=== PATIENT | female | born 2005 | race Caucasian/White ===

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

== ENCOUNTER 2023-01-04 12:50 | Outpatient (RCR) | payer OTHER, SELFPAY ==
[2023-01-04] MEDS: ONDANSETRON 2 MG/ML inj 4 MG IV (13:26)
[2023-01-04] MEDS: 0.9 % SODIUM CHLORIDE 1000 ml 1,000 ML IV (13:27)
[2023-01-04 15:11] VITALS: BP 114/77; PULSE 64; RESP 18; O2SAT 98
== END 2023-07-03 23:59 | disposition home or self-care (01) ==
LOC: CCIC 12:50
PROVIDERS: PCP Family Medicine; Referring Provider Family Medicine; Visit Provider Internal Medicine
DX: G90.1 Familial dysautonomia [Riley-Day] (principal)
CPT/HCPCS: 96360; 96376; J2405; J7030

== ENCOUNTER 2023-10-25 11:28 | Outpatient (REF) | payer OTHER, SELFPAY | END 2023-10-25 11:29 | disposition home or self-care (01) | LOC: NFLDREF 11:28 | PROVIDERS: PCP Family Medicine; Referring Provider Family Medicine; Visit Provider Physician Assistant | DX: R30.0 Dysuria (principal); N39.0 Urinary tract infection, site not specified | CPT/HCPCS: 87086 ==

== ENCOUNTER 2024-01-19 22:46 | Emergency (ER) | payer OTHER, SELFPAY ==
[2024-01-19 22:53] VITALS: BP 136/90; PULSE 91; RESP 18; TEMP 36.7; O2SAT 100; BMI 20.2
== END 2024-01-20 01:02 | disposition left against medical advice (07) ==
PROVIDERS: Emergency Provider Emergency Medicine Emergency Medical Services; PCP Family Medicine
DX: Z53.21 Procedure and treatment not carried out due to patient leaving prior to being seen by health care provider (principal)
CPT/HCPCS: 93005

== ENCOUNTER 2024-02-25 07:39 | Outpatient (REF) | payer OTHER, SELFPAY ==
--- OUTSIDE RECORDS SUMMARY | 2024-02-25 07:43 | XMS_ITS | Clinical Summary ---
Author Name Unknown Organization [facility] Address [place], [place] [address] Care Team Providers Care Dispensing And Measuring Optician Name Role Phone Pcp, No Primary Care Provider Unavailabl e Allergies Active Allergy Reactions Criticality Noted Date Comments Amitriptyline Other - Describe In Comment Field,Visual Disturbances 06/08/2021 Blurry vision (Abstracted records from [facility] Everywhere) Blurry vision Blurry vision Iodinated Contrast Media Hives,Rash Medium 07/02/2019 Metoclopramide *Unknown,Tachycardia 01/18/2022 (Abstracted records from [facility] Everywhere) Omeprazole Hives,Itching Medium 03/06/2019 Penicillins Rash Medium 07/21/2007 (Abstracted from transferred records[facility]) Medications Medication Sig Dispensed Refills Start Date End Date Status APREPITANT ORAL Take 4 mL by mouth once every other day. Active SODIUM CHLORIDE ORAL Take 3 capsules. by mouth 3 times daily if needed. Active acetaminophen (TYLENOL EXTRA STRGTH) 500 mg tablet Take 1,000 mg by mouth 2 times daily if needed for Pain. Active diclofenac 1.3 % (FLECTOR) 1.3 % patch Apply 1 Patch topically to affected area(s) 2 times daily if needed. 08/27/2022 Active fludrocortisone (FLORINEF) 0.1 mg tablet Take 0.2 mg by mouth once daily. 07/24/2022 Active FLUoxetine (PROZAC) 10 mg capsule Take 10 mg by mouth once daily. 08/27/2022 Active ibuprofen (ADVIL; MOTRIN) 400 mg tablet Take 400 mg by mouth every 6 hours if needed for Pain or Headache. 10/04/2021 Active levocetirizine (XYZAL) 5 mg tab tablet Take 5 mg by mouth once daily. 07/24/2023 Active montelukast (SINGULAIR) 10 mg tablet Take 1 Tablet by mouth once daily. 02/12/2023 Active ondansetron (ZOFRAN ODT) 4 mg disintegrating tablet Take 4 mg by mouth every 8 hours if needed for Nausea/Vomiting. 08/27/2022 Active simethicone 250 mg cap Take 250 mg by mouth every 6 hours if needed (gas). Active benzonatate (TESSALON) 100 mg capsuleIndications:Co ugh, unspecified type Take 1 Capsule (100 mg) by mouth 3 times daily if needed for Cough. 21 Capsule 08/14/2023 Active Active Problems No known active problems Social History Tobacco Use Types Packs/Day Years Used Date Smoking Tobacco: Never Smokeless Tobacco: Never Tobacco Cessation:Counseling Given: Not Answered Sex and Gender Information Value Date Recorded Sex Assigned at Not on file Gender Identity Not on file Sexual Orientation Not on file Obstetrics History Last Filed Vital Signs Vital Sign Reading Time Taken Comments Blood Pressure 119/82 09/11/2023 6:48 PM CDT Pulse 66 09/11/2023 6:48 PM CDT Temperature 37.2 ??C (98.9 ??F) 09/11/2023 6:48 PM CD T Respiratory Rate 16 09/11/2023 6:48 PM CDT Oxygen Saturation 100% 09/11/2023 6:48 PM CDT Inhaled Oxygen Concentration - - Weight 46 kg (101 lb 6.4 oz) 09/11/2023 3:49 PM CDT Height 149.9 cm (4' 11) 03/02/2023 10:26 PM CDT Body Mass Index - - Plan of Treatment Health Maintenance Due Date Last Done Comments Well Child Check for age 3-20 08/07/2006 Tdap 2014 Depression screening for age 12+ 2015 HIV for age 15-65 2018 HPV series for age 9-26 (1 - 3-dose series) 2018 Chlamydia for age 16-24 2019 BMI (ht and wt on same day) for age 18+ 2021 Hepatitis C screening for age 18-79 2021 Tetanus booster 2023 Influenza for age 9-49 07/19/2024 COVID-19 vaccine series Completed 08/10/20 23, 08/14/2022, 11/08/2021, Additional history exists Meningococcal series for age 11-21 Aged Out No longer eligible based on patient's age to complete this topic Pneumococcal series for age 6-64 Aged Out No longer eligible based on patient's age to complete this topic Care Teams Dispensing And Measuring Optician Relationship Specialty Start Date End Date Pcp, No . PCP - General 02/02/23
--- OUTSIDE RECORDS SUMMARY | 2024-02-25 07:43 | XMS_ITS | Encounter Summary ---
Author Name Unknown Organization [facility] Address [address] [place] [address] Care Team Providers Care Home Health Aide Name Role Phone Aldo Hare M.D. Primary Care Provider [phone] Lore David N.P. Primary Care Provider [phone] Mary Ferrera R.N. Unavailable Unavaila Juan José Reynaga M.D. Primary Care Provider [phone] Leena Cui R.N. Unavailable Unavailabl Leena Engel R.N. Unavailable Unavailgladys e Encounter Details Date Type Department Care Team (Late st Contact Info) Description 10/26/2012 After Hours Phone Note [facility] [address] [facility], [address] [place] [id number] Social History Tobacco Use Types Packs/Day Years Used Date Smoking Tobacco: Never Alcohol Use Standard Drinks/Week Comments Not Asked 0 (1 standard drink = 0.6 oz pur e alcohol) Sex and Gender Information Value Date Recorded Sex Assigned at Not on file Gender Identity Not on file Sexual Orientation Not on file Job Start Date Occupation Industry Not on file Not on file Not on file documented as of this encounter Plan of Treatment Upcoming Encounters Date Type Department Care Team (Late st Contact Info) Description 05/01/2024 2:00 PM CDT Office Visit [facility] [place] [address] [place] [address] Kamlesh Ortiz M.D. [address] [place] [address] documented as of this encounter Visit Diagnoses Not on filedocumented in this encounter Additional Health Concerns Infection Onset Date Last Indicated Resolved Time COVID-19 Rule-Out 04/21/2022 04/21/2022 04/22/2022 9:15 AM CDT COVID-19 (confirmed) 04/21/2022 04/21/2022 022 3:22 PM BOAT LABORER documented as of this encounter Care Teams Home Health Aide Relationship Specialty Start Date End Date Aldo Hare M.D. [address] [place] [address] PCP - General 04/18/07 02/22/19 Lore David, N.P. [address] [place] [address] PCP - General Family Nurse Practitioner 02/23/19 Juan José Leblanc M.D. [address] [place] [phone] PCP - General Family Medicine 10/10/20 Mary Ferrera R.N. Order Packer 05/17/21 12/03/22 Leena Cui RJelena Order Packer 03/25/23 Leena Cui R.NJuanjo 04/25/23 07/23/23 documented as of this encounter
--- OUTSIDE RECORDS SUMMARY | 2024-02-25 07:43 | XMS_ITS | Encounter Summary ---
Author Name Unknown Organization [facility] Address [address] [place] [address] Care Team Providers Care Bargeman Name Role Phone Lore David N.P. Primary Care Provider [phone] Mary Ferrera R.N. Unavailable Unavaila Juan José Reynaga M.D. Primary Care Provider [phone] Leena Cui R.N. Unavailable UnavailLeena Cuevas R.N. Unavailable Unavailabl e Encounter Details Date Type Department Care Team (Late st Contact Info) Description 02/02/2020 Abstract [facility] [address] [place] [address] Ordering Provider, External [address] [place] [address] Social History Tobacco Use Types Packs/Day Years Used Date Smoking Tobacco: Never Smokeless Tobacco: Never Alcohol Use Standard Drinks/Week Comments No 0 (1 standard drink = 0.6 oz pur e alcohol) Sex and Gender Information Value Date Recorded Sex Assigned at Not on file Gender Identity Not on file Sexual Orientation Not on file Job Start Date Occupation Industry Not on file Not on file Not on file documented as of this encounter Functional Status Functional Status Response Date of Assess ment Is patient deaf or have serious difficulty heari ng? No 02/16/2016 Is patient blind or have ser ious difficulty seeing, even when wearing glasses? No 02/16/2016 Does patient have difficulty walking or climbing stairs? No 02/16/2016 Does patient have difficulty dressing or bathing ? No 02/16/2016 Cognitive Status Response Date of Assessm ent Does patient have serious di fficulty concentrating, remembering, or making decisions? No 02/16/2016 documented as of this encounter Plan of Treatment Upcoming Encounters Date Type Department Care Team (Late st Contact Info) Description 05/01/2024 2:00 PM CDT Office Visit [facility] [place] [address] [place] [phone] Kamlesh Ortiz M.D. [address] [place] [phone] documented as of this encounter Procedures Procedure Name Priority Date/Time Associated Diagnosis Comments HEMOGRAM - EXTERNAL Today 01/28/2020 1 0:40 AM CDT VITAMIN D - EXTERNAL Today 01/28/2020 10:39 AM CDT documented in this encounter Results * (ABNORMAL) HEMOGRAM - EXTERNAL (01/28/2020 10:40 AM CDT) White Blood Cells 6.63 4.00 - 10.50 K/uL EXTERNAL LAB Red Blood Cells 4.60 4.10 - 5.30 M/uL EXTERNAL LAB Hemoglobin 13.5 12.0 - 15.0 g/dL EXTERNAL LAB Hematocrit 41.3 35.0 - 45.0 % EXTERNAL LAB MCV 89.8 78.0 - 95.0 fL EXTERNAL LAB MCH 29.3 26.0 - 32.0 pg EXTERNAL LAB MCHC 32.7 32.0 - 36.0 g/dL EXTERNAL LAB RDW 13.2 11.5 - 14.0 % EXTERNAL LAB Platelet Count 296 150 - 450 K/uL EXTERNAL LAB MPV 10.3(H) 6.0 - 9.5 fL EXTERNAL LAB 01/28/2020 10:4 0 AM CDT Narrative EXTERNAL LAB - 02/02/2020 8:46 AM CDT See Care Everywhere [address] [address] External Ordering Provider LABORATORY Performing Organization Address [facility]/ZIP Co de Phone Number EXTERNAL LAB * (ABNORMAL) VITAMIN D - EXTERNAL (01/28/2020 10:39 AM CDT) VITAMIN D 25 HYDROXY 28.2(L) 30.0 - 100.0 ng/mL EXTERNAL LAB 01/28/2020 10:3 9 AM CDT Narrative EXTERNAL LAB - 02/02/2020 8:48 AM CDT See Care Every[address] [address] External Ordering Provider LABORATORY Performing Organization Address City/[facility] Co de Phone Number EXTERNAL LAB documented in this encounter Visit Diagnoses Not on filedocumented in this encounter Additional Health Concerns Infection Onset Date Last Indicated Resolved Time COVID-19 Rule-Out 04/21/2022 04/21/2022 04/22/2022 9:15 AM CDT COVID-19 (confirmed) 04/21/2022 04/21/2022 11/ 022 3:22 PM MIDWIFE [employer] 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 [address] [place] [address] PCP - General Family Nurse Practitioner 02/23/19 Juan José Leblanc M.D. [address] [place] [phone] PCP - General Family Medicine 10/10/20 Mary Ferrera R.N. Piece Work Inspector 05/17/21 12/03/22 Leena Cui R.N. Piece Work Inspector 03/25/23 Leena Cui R.N. 04/25/23 07/23/23 documented as of this encounter
--- OUTSIDE RECORDS SUMMARY | 2024-02-25 07:43 | XMS_ITS | Encounter Summary ---
Author Name Unknown Organization [facility] Address [address] [place] [address] Care Team Providers Care Lead Cook Name Role Phone Juan José Leblanc M.D. Primary Care Provider [phone] Leena Cui R.N. Unavailable Unavailabl e Reason for Visit * Reason Onset Date Comments Refill Request 01/24/2024 Encounter Details Date Type Department Care Team ([facility] Contact Info) Description 01/24/2024 Refill [facility] [place] [facility] [place] [address] [place] [address] [address] [place] [address] Juan José Leblanc M.D. [address] [place] [phone] Refill Request Social History Tobacco Use Types Packs/Day Years Used Date Smoking Tobacco: Never Smokeless Tobacco: Never Alcohol Use Standard Drinks/Week Comments Not Asked 0 (1 standard drink = 0.6 oz pur e alcohol) AUDIT-C Answer Date Recorded Q1: How often do you have a drink containing alc ohol? Never 11/13/2022 Average Number of Drinks Not on file 12/27/2 022 Frequency of Binge Drinking Not on file 10/19 PHQ-2 Answer Date Recorded Patient Health Questionnaire-2 Score 0 11/13/2022 Sex and Gender Information Value Date Recorded Sex Assigned at Not on file Gender Identity Not on file Sexual Orientation Not on file Job Start Date Occupation Industry Not on file Not on file Not on file documented as of this encounter Functional Status Functional Status Response Date of Assess ment Is the person deaf or does h e/she have serious difficulty hearing? No 11/13/2022 Is this person blind or does he/she have serious difficulty seeing even when wearing glasses? No Does this person have seriou s difficulty walking or climbing stairs? No 11/13/2022 Does this person have difficulty dressing or bat alia? No 11/13/2022 Because of a physical, menta l, or emotional condition, does this person have difficulty doing errands alone such as visiting a doctor's office or shopping? No 11/13/2022 Cognitive Status Response Date of Assessm ent Because of a physical, menta l, or emotional condition, does this person have serious difficulty concentrating, remembering, or making decisions? No 11/13/2022 documented as of this encounter Plan of Treatment Upcoming Encounters Date Type Department Care Team (Late st Contact Info) Description 05/01/2024 2:00 PM CDT Office Visit [facility] [place] [facility] [place] [address] [place] [phone] Kamlesh Ortiz M.D. [address] [place] [phone] documented as of this encounter Visit Diagnoses Diagnosis Seasonal and perennial allergic rhinitis Allergic rhinitis, cause unspecified documented in this encounter Additional Health Concerns Assessment Noted Time PHQ-9 Depression Total Score: 0 11/25/19 21 11:44 AM HOTEL ASSOCIATE documented as of this encounter Care Teams Lead Cook Relationship Specialty Start Date End Date Juan José Leblanc M.D. [address] [place] [phone] PCP - General Family Medicine 10/10/20 Leena Cui R.N. Thermal Cutter Helper 03/25/23 documented as of this encounter
--- OUTSIDE RECORDS SUMMARY | 2024-02-25 07:43 | XMS_ITS | Clinical Summary ---
Author Name Unknown Organization [facility] Address [address] [place] [address] Care Team Providers Care Steel Construction Worker Name Role Phone Juan José Leblanc M.D. Primary Care Provider [phone] Leena Cui R.N. Unavailable Unavailabl e Allergies Active Allergy Reactions Criticality Noted Date Comments Amitriptyline Other 06/08/2021 Blurry vision Amoxicillin Rash 07/21/2007 Contrast Dye (Iv) Rash 07/02/2019 OK TO USE BARIUM CONTRAST FOR G-J TUBE EXCHANGE( 05-11-21) - RADIOLOGY [facility] Iodinated Diagnostic Agents Hives 09/26/2022 Lactose Gastrointestinal Intolerance Low 08/22/2016 Omeprazole Itch 03/06/2019 Metoclopramide Intolerant,Tachycardia 2 Medications Medication Sig Dispensed Refills Start Date End Date Status triamcinolone 0.025% (KENALOG) 0.025 % ointment Apply 1 Application topically as needed. 0 Active aprepitant (EMEND) 80 MG capsule Take 80 mg by mouth twice weekly. Tuesdays, 0 12/01/2020 Active olopatadine (Pataday) 0.2 % ophthalmic solutionIndications:A llergic conjunctivitis of both eyes Place 1 drop in both eyes once daily as needed for Allergies. 1 bottle 11 04/11/2021 Active fluticasone (Flonase) 50 MCG/ACT nasal sprayIndications:Seas onal and perennial allergic rhinitis 2 sprays in each nostril once daily. 3 bottle 3 04/11/2021 Active Additional Information Patient not taking.Reported on 05/18/2022 lubiprostone (Amitiza) 24 MCG capsule Take 24 mcg by mouth every 12 hours. 0 09/12/2021 Active Simethicone 250 MG CAPS Take 250 mg by mouth 4 times daily as needed. 0 Active sodium chloride 1 g tablet Take 1 gram by mouth 3 times daily. 0 Active IUD'S IU 0 Active SUMAtriptan (Imitrex) 100 MG tabletIndications:Lucien angus Take 1 tablet by mouth as needed for Migraine. May repeat in 2 hours if needed. Do not exceed 2 in 24 hours. 9 tablet 2 01/17/2022 Active Additional Information Patient not taking.Reported on 05/18/2022 fludrocortisone (Florinef) 0.[address] degree AV block,Dysautonomia ([facility]) Take 1 tablet by mouth once daily. 30 tablet 2 03/02/2022 Active triamcinolone 0.025% (Aristocort) 0.025 % cream 0 05/30/2022 Active Xifaxan 550 MG TABS 0 07/11/2022 Activ e diclofenac (Flector) 1.3 % PatchIndications:Righ t low back pain Apply 1 patch topically twice daily. 30 patch 3 08/27/2022 Active midodrine (Proamatine) 2.5 MG tablet three times a day 0 09/26/2022 Active fludrocortisone (Florinef) 0.1 MG tablet Take 0.2 mg by mouth. 0 07/24/2022 Active midodrine (Proamatine) 5 MG tablet Take 5 mg by mouth 3 times daily. 0 09/05/2022 Active LORazepam (Ativan) 0.5 MG tabletIndications:Mix ed anxiety depressive disorder 1 tablet 1 hour prior to procedure. May repeat x1 if needed 2 tablet 0 02/12/2023 Active FLUoxetine (Prozac) 10 MG capsuleIndications:Mi xed anxiety depressive disorder Take 2 capsules by mouth once daily. 180 capsule 0 10/17/2023 Active montelukast (Singulair) 10 MG tabletIndications:Sea micki and perennial allergic rhinitis Take 1 tablet by mouth at bedtime. 90 tablet 0 10/17/2023 Active Levocetirizine Dihydrochloride (Xyzal) 5 MG tabletIndications:All ergic rhinitis Take 1 tablet by mouth once daily. 90 tablet 0 10/17/2023 Active ondansetron ODT (Zofran) 4 MG disintegrating tabletIndications:Gas troparesis Take 1 tablet by mouth every 6 hours as needed for Nausea. 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 Positive HARRIET (antinuclear antibody) 11/17/2019 Other constipation 11/08/2019 Arthralgia 11/08/2019 Dysphagia 11/08/2019 Gastroparesis 09/30/2019 Adolescent depression 08/06/2019 Chronic pharyngitis 07/02/2019 Heartburn 07/02/2019 Elevated erythrocyte sedimentation rate 07/02/20 Recurrent oral aphthae 07/02/2019 Chronic abdominal pain 02/23/2019 Vitamin D insufficiency 02/09/2019 Lactose intolerance 10/27/2014 Resolved Problems Problem Noted Date Diagnosed Date Resolved Date Calcium oxalate crystals in urine 02/21/2021 10/24/2021 Malfunction of jejunostomy t ube ([facility]) 03/09/2020 10/24/2021 Malnutrition ([facility]) 02/26/2020 09/28/2020 Malnutrition of moderate deg ree ([facility]) 10/22/2019 11/13/2022 Abdominal pain, right upper quadrant 07/02/2019 09/28/2020 Abdominal pain, right lower quadrant 07/02/2019 09/28/2020 Abdominal pain, epigastric 07/02/2019 1 11/28/2019 Abdominal tenderness, right upper quadrant 07/02/2019 09/28/2020 Abdominal tenderness, left upper quadrant 07/02/2019 09/28/2020 Abdominal tenderness, right lower quadrant 07/02/2019 09/28/2020 Abdominal tenderness, epigastric 07/02/2019 09/28/2020 Low back pain 07/02/2019 09/28/2020 Flatulence 07/02/2019 09/28/2020 Nausea 07/02/2019 09/28/2020 Wheal 07/02/2019 09/28/2020 Abdominal pain, periumbilical 07/02/2019 09/28/2020 Abnormal stools 07/02/2019 09/28/2020 Abdominal tenderness, periumbilical 07/02/2019 09/28/[address] scan, gastrointestinal tract 07/02/2019 09/28/2020 Pruritic rash 07/02/2019 09/28/2020 Abnormal biliary HIDA scan 03/06/2019 1 11/28/2019 Family history of autoimmune disorder 02/03/2019 09/28/2020 Keratosis pilaris 02/16/2016 09/28/2020 Chronic pharyngitis 01/15/2014 06/03/20 15 Underweight 01/15/2014 09/28/2020 Short stature 01/15/2014 09/28/2020 Elevated sedimentation rate 01/15/2014 02/16/2016 Flatulence 01/15/2014 06/03/2015 Abnormal stools 01/15/2014 06/03/2015 Abdominal pain, epigastric 01/05/2014 0 06/03/2015 ESR raised 01/05/2014 06/03/2015 Overview: 12/2013 initial Lyme +; Western blot NEG Encounters Date Type Department Care Team Description 01/24/2024 Refill [facility] [address] [place] [phone] Juan José Leblanc M.D. Refill Request 01/15/2024 [address] [facility] [address] [place] [phone] Juan José Leblanc M.D. Refill Request 12/18/2023 Refill [facility] - A Department of [address] [address] Juan José Leblanc M.D. Refill Request from Last 3 Months Immunizations Name Administration Dates Next Due DTaP 03/21/2005 DTaP, 5 Pertussis Antigens 09/08/2008 [id number]-[id number]-Cggar 03/10/2004,01/07/2004,2003 HIB-OMP 10/04/2004 HepA Ped 2 Dose 09/08/2008,10/01/2007 Hepatitis B Vaccine 2003 Hib-HbOC 01/07/2004 Hib-PRP-T 03/10/2004,2003 Hpv, 9-valent 05/20/2018,04/11/2017 IPV 09/08/2008 Influenza Adult (3+) 09/22/2012,10/16/2004,09/05 Influenza Preservative-Free 09/22/2012, 1 Influenza Quadrivalent P-Free 08/30/2022 ,10/24/2021,08/19/2020,09/24,08/25/2018,09/13/2017,09/13/2016 Influenza, unspecified formulation 10/24/2021,,09/05/2004 MMR 10/04/2004 Meningococcal B, OMV 11/14/2020,10/10/2020 Meningococcal, c Conjugate 08/19/2020,10/25/2014 Meningococcal-MCV4P 08/19/2020 Mmr & Zheng Combo Vaccine 10/01/2007 Moderna COVID-19 Vaccine 11/08/2021 Pfizer COVID-19 Vaccine Biva lent (12Y+) 08/14/2022 Lenet-Mobypark COVID-19 Vaccine 04/12/2021,05/0 03/2021 Pneumococcal Conjugate 7 10/04/2004,09/18,06/09/2004,06/09,01/07/2004,01/07/2004,2003 ,2003 Tdap >7 Years 09/24/2013 Varicella Vaccine 10/04/2004 Family History Medical History Relation Comments Asthma Brother Exercise Induced skin cancer Father Thyroid Maternal Aunt 1 precancerous colon polyps Maternal Aunt 2 Arthritis Maternal Grandfather psoriatic Alzheimers Maternal Grandmother Autoimmune Disease Maternal Grandmother Lupus Other Maternal Grandmother MFHx of aut oimmune disorders Thyroid Maternal Grandmother Asthma Mother Exercise Induced Cancer Paternal Grandmother breast Relation Status Comments Brother Alive x 1 Father Alive Maternal Aunt 1 Maternal Aunt 2 Maternal Grandfather Maternal Grandmother Mother Alive Paternal Grandmother Social History Tobacco Use Types Packs/Day Years Used Date Smoking Tobacco: Never Smokeless Tobacco: Never Tobacco Cessation:Counseling Given: No Alcohol Use Standard Drinks/Week Comments Not Asked 0 (1 standard drink = 0.6 oz pur e alcohol) AUDIT-C Answer Date Recorded Q1: How often do you have a drink containing alc ohol? Never 11/13/2022 Average Number of Drinks Not on file 022 Frequency of Binge Drinking Not on file 10/19 PHQ-2 Answer Date Recorded Patient Health Questionnaire-2 Score 0 11/13/2022 Sex and Gender Information Value Date Recorded Sex Assigned at Not on file Gender Identity Not on file Sexual Orientation Not on file Job Start Date Occupation Industry Not on file Not on file Not on file Last Filed Vital Signs Vital Sign Reading Time Taken Comments Blood Pressure 125/78 11/13/2022 2:17 PM CRABBER Pulse 71 11/13/2022 2:17 PM CRABBER Temperature 36.6 ??C (97.9 ??F) 10/10/2022 1:11 PM CS T Respiratory Rate 16 10/10/2022 1:11 PM CRABBER Oxygen Saturation 99% 11/13/2022 2:17 PM CRABBER Inhaled Oxygen Concentration - - Weight 43.8 kg (96 lb 8 oz) 11/13/2022 2:[address] Height 151.6 cm (4' 11.7) 11/13/2022 2:17 PM CS T Body Mass Index 19.04 11/13/2022 2:17 PM CRABBER Plan of Treatment Upcoming Encounters Date Type Department Care Team (Late st Contact Info) Description 05/01/2024 2:00 PM CDT Office Visit [facility] [place] [address] [place] [address] [phone] Kamlesh Ortiz M.D. [address] [place] [phone] Health Maintenance Due Date Last Done Comments CHLAMYDIA SCREENING IN WOMEN 2019 HEPATITIS C SCREENING 2021 COVID-19 Vaccine ( season) 2023 08/14/2022, 11/08/2021, 04/12/2021, Additional history exists DTaP,Tdap,and Td Vaccines (7 - Td or Tdap) 09/24/2023 09/24/2013, 09/08/2008, 03/21/2005, Additional history exists INFLUENZA (SEASONAL) (Season Ended) 2024 08/30/2022, 10/24/2021, 10/24/2021, Additional history exists HEPATITIS B VACCINES Completed 03/10/2004, 01/07/2004, 2003, Additional history exists PNEUMOCOCCAL SERIES 0-64 YEARS Aged Out 10/04/2004, 10/04/2004, 06/09/2004, Additional history exists No longer eligible based on patient's age to complete this topic HPV Completed 05/20/2018, 04/11/2017 LIPID PANEL Completed 10/16/2021, 10/18, 11/24/2013 Advance Directives For more information, please contact: [phone] Latest Code Status on File Code Status Date Activated Date Inactivated Comments Full Code 03/09/2020 9:52 PM 03/10/2020 4:32 PM Code Status History Code Status Date Activated Date Inactivated Comments Full Code 07/02/2019 11:23 AM 07/02/2019 5:12 PM Full Code 01/15/2014 7:15 AM 01/16/2014 2:10 AM Care Teams Steel Construction Worker Relationship Specialty Start Date End Date Juan José Leblanc M.D. [address] [place] [phone] PCP - General Family Medicine 10/10/20 Leena Cui R.N. Manager Culture 03/25/23
--- OUTSIDE RECORDS SUMMARY | 2024-02-25 07:43 | XMS_ITS | Encounter Summary ---
Author Name Unknown Organization [facility] Address [address] [place] [address] Care Team Providers Care Apparel Merchandiser Name Role Phone Juan José Leblanc M.D. Primary Care Provider [phone] Leena Cui R.N. Unavailable Unavailabl e Reason for Visit * Reason Onset Date Comments Refill Request 01/15/2024 Encounter Details Date Type Department Care Team ([facility] Contact Info) Description 01/15/2024 Refill [facility] - N [address] [place] [address] [address] [place] [phone] Juan José Leblanc M.D. [address] [place] [phone] Refill Request Social History Tobacco Use [...] Description 05/01/2024 2:00 PM CDT Office Visit [facility] [place] [address] [place] [phone] Kamlesh Ortiz M.D. [address] [place] [phone] documented as of this encounter Visit Diagnoses Diagnosis Gastroparesis documented in this encounter Additional Health Concerns Assessment Noted Time PHQ-9 Depression Total Score: 0 11/25/19 21 11:44 AM PASSENGER INTERLINE CLERK documented as of this encounter Care Teams Apparel Merchandiser Relationship Specialty Start Date End Date Juan José Leblanc M.D. [address] [phone] PCP - General Family Medicine 10/10/20 Leena Cui R.N. Overhead Line Worker 03/25/23 documented as of this encounter
--- OUTSIDE RECORDS SUMMARY | 2024-02-25 07:43 | XMS_ITS | Encounter Summary ---
Author Name Unknown Organization [facility] Address [address] [place] [address] Care Team Providers Care Portable Canteen Operator Name Role Phone Juan José Leblanc M.D. Primary Care Provider [phone] Leena Cui R.N. Unavailable Unavailabl e Leena Cui R.N. Unavailable Unavailabl e Encounter Details Date Type Department Care Team (Late st Contact Info) Description 06/07/2023 Chart Note/Orders [facility] - A Department of [place] [id number] [facility], [address] [place], [place] [id number] Marin Mccrary M.D. [address] [place] [phone] Social History Tobacco Use Types Packs/Day Years [...] Description 05/01/2024 2:00 PM CDT Office Visit [facility] [place] [address] [place] [phone] Kamlesh Ortiz M.D. [address] [place] [address] [phone] Scheduled Orders Name Type Priority Associated Diagnoses Orde r Schedule MISCELLANEOUS LAB Lab Routine Chronic idiopathic constipation Expected: 06/14/2023 (Approximate), Expires: 06/07/2024 documented as of this encounter Visit Diagnoses Diagnosis Chronic idiopathic constipation- Primary Unspecified constipation documented in this encounter Additional Health Concerns Assessment Noted Time PHQ-9 Depression Total Score: 0 11/25/19 21 11:44 AM EMBEDDED SOFTWARE MANAGER documented as of this encounter Care Teams Portable Canteen Operator Relationship Specialty Start Date End Date Juan José Leblanc M.D. [address] [place] [phone] PCP - General Family Medicine 10/10/20 Leena Cui R.N. Ambulance Driver Paramedic 03/25/23 Leena Cui R.N. 04/25/23 07/23/23 documented as of this encounter
--- OUTSIDE RECORDS SUMMARY | 2024-02-25 07:43 | XMS_ITS | Encounter Summary ---
Author Name Unknown Organization [facility] Address [address] [place] [address] Care Team Providers Care Mosaicist Name Role Phone Juan José Leblanc M.D. Primary Care Provider [phone] Leena Cui R.N. Unavailable Unavailabl e Reason for Visit * Reason Comments Refill Request Encounter Details Date Type Department Care Team (Late st Contact Info) Description 12/18/2023 Refill [facility] - A Department of [address] [phone] Juan José Leblanc M.D. [address] [place] [phone] Refill Request Social History Tobacco Use [...] Description 05/01/2024 2:00 PM CDT Office Visit [facility] [place] [address] [place] [phone] Kamlesh Ortiz M.D. [address] [place] [phone] documented as of this encounter Visit Diagnoses Diagnosis Mixed anxiety depressive disorder Dysthymic disorder documented in this encounter Additional Health Concerns Assessment Noted Time PHQ-9 Depression Total Score: 0 11/25/19 21 11:44 AM BASKET MACHINE OPERATOR documented as of this encounter Care Teams Mosaicist Relationship Specialty Start Date End Date Juan José Leblanc M.D. [address] [phone] PCP - General Family Medicine 10/10/20 Leena Cui R.N. Pipe Testing Technician 03/25/23 documented as of this encounter
[2024-02-25 07:57] LABS: Basophils Absolute Auto 0.05 K/uL (0.00-0.30); Basophils Percent Auto 0.6 % (0.0-3.0); Eosinophils Absolute Auto 0.19 K/uL (0.00-0.50); Eosinophils Percent Auto 2.2 % (0.0-7.0); Hematocrit 43.2 % (33.0-51.0); Hemoglobin* 14.5 gm/dL (12.0-16.0); Immature Granulocytes Abs Auto 0.01 K/uL (0.00-0.30); Immature Granulocytes Pct Auto 0.1 %; Lymphocytes Absolute Auto 1.88 K/uL (0.90-2.90); Lymphocytes Percent Auto 21.7 % (20-44); Mean Corpuscular HGB Conc 34 gm/dL (32-36); Mean Corpuscular Hemoglobin 30 pg (26-34); Mean Corpuscular Volume 89 fL (80-100); Monocytes Percent Auto 2.9 % (0.0-11.0); Neutrophils Percent Auto 72.5 % (42.0-72.0); Platelet Count* 423 K/uL (140-440); RDW Coefficient of Variation % 11.7 % (11.5-15.5); Red Blood Count 4.86 m/uL (4.00-5.20); White Blood Count* 8.68 K/uL (4.50-11.00)
[2024-02-25 07:58] LABS: Albumin* 4.8 g/dL (3.3-5.0); Chloride* 101 mmol/L (96-114); Slide Review Reflex No
[2024-02-25 07:59] LABS: Potassium* 3.7 mmol/L (3.6-5.1); Sodium* 139 mmol/L (135-149)
[2024-02-25 08:01] LABS: Bilirubin Total* 0.6 mg/dL (0.1-1.5); Creatinine* 0.6 mg/dL (0.5-1.5); Estimated Glomerular Filt Rate 132 ml/min
[2024-02-25 08:02] LABS: Alanine Aminotransferase* 15 U/L (4-35); Alkaline Phosphatase* 68 U/L (40-150); Anion Gap 11 mEq/L (7-15); Aspartate Amino Transferase* 27 U/L (12-35); Blood Urea Nitrogen* 10 mg/dL (5-24); Carbon Dioxide* 27 mmol/L (20-32); Glucose* 84 mg/dL (60-115); Total Protein* 8.3 g/dL (6.0-8.3)
[2024-02-25 08:08] LABS: C Reactive Protein* < 0.5 mg/dL (0.5-1.0)
[2024-02-25 08:19] LABS: Vitamin D 25 Hydroxy* 31 ng/mL (30-80)
[2024-02-25 08:33] LABS: Thyroid Stimulating Hormone* 0.667 uIU/mL (0.270-4.20)
== END 2024-02-25 07:40 | disposition home or self-care (01) ==
LOC: NPINS 07:39
PROVIDERS: PCP Family Medicine; Visit Provider Specialist
DX: M25.50 Pain in unspecified joint (principal); R51.9 Headache, unspecified; Q79.60 Ehlers-Danlos syndrome, unspecified; K92.1 Melena
CPT/HCPCS: 80053; 82306; 84443; 85025; 86140

== ENCOUNTER 2025-09-27 17:37 | Outpatient (CLI) | payer BC, SELFPAY | END 2025-09-27 17:38 | disposition home or self-care (01) | LOC: NFLDUCREF 17:38 | PROVIDERS: PCP Family Medicine; Visit Provider Physician Assistant Surgical | DX: J98.8 Other specified respiratory disorders (principal); Z92.89 Personal history of other medical treatment | CPT/HCPCS: 87070 ==